=== PATIENT | male | born 1985 | race Caucasian/White ===

== ENCOUNTER → 2020-03-04 | Outpatient (CLI) | payer OTHER ==
--- NOTE | 2020-03-05 01:45 | MR ---
EXAMINATION TYPE: MR lumbar spine wo con DATE OF EXAM: 03/04/2020 COMPARISON: None HISTORY: LBP, BLE radic, injury 7 mos ago Multiplanar multiecho imaging of the lumbar spine was performed with no contrast. Lumbar vertebra have normal alignment. There is some narrowing of the disc spaces at L4-5 and L5-S1. There are small posterior disc bulges and herniation at L4-5 and L5-S1. There is developmentally larg e spinal canal and no spinal stenosis. The lumbar neural foramina are fairly well-maintained. There i s no paraspinal mass. There is no compression fracture. The sacroiliac joints appear intact. There is very slight increased signal on the T2 images within the disc at L5-S1. There is slight decr eased signal in the vertebral bodies on both sides of the L5-S1 disc on the T1 images that suggests s ome mild edema. There is anterior L5-S1 lumbar disc herniation IMPRESSION: Mild increased fluid signal in the disc at L5-S1 which is otherwise narrowed and should have desiccat ion and decreased signal. L5-S1 discitis is possible. No fracture. No spinal stenosis. Contrast MR scan would BE helpful for further evaluation to show enh ancement related to inflammatory process.
== END | disposition home or self-care (01) ==
LOC: RADMRIMAIN 19:51
PROVIDERS: ATTEND Neurological Surgery
DX: R90.89 Other abnormal findings on diagnostic imaging of central nervous system (principal); M54.9 Dorsalgia, unspecified
CPT/HCPCS: 72148